=== PATIENT | male | born 2000 | race Caucasian/White ===

== ENCOUNTER 2022-10-30 07:54 | Emergency (ER) | payer OTHER ==
[~2022-10-30] VITALS: Ht 177.8 cm; Wt 72.6 kg
[2022-10-30] MEDS ORDERED: BETAXOLOL HCL10 MG PO (08:01)
== END 2022-10-30 15:13 | disposition home or self-care (01) ==
LOC: ER 07:54
DX: K52.9 Noninfective gastroenteritis and colitis, unspecified (principal); I10 Essential (primary) hypertension

== ENCOUNTER 2023-07-03 01:10 | Emergency (ER) | payer OTHER ==
[~2023-07-03] VITALS: Ht 177.8 cm; Wt 76.2 kg
[~2023-07-03 01:10] MED LIST: BETAXOLOL HCL10 MG PO
== END 2023-07-03 05:54 | disposition home or self-care (01) ==
LOC: ER 01:10
DX: K52.89 Other specified noninfective gastroenteritis and colitis (principal)